=== PATIENT | female | born 1950 | race Caucasian/White ===

== ENCOUNTER → 2016-10-14 | Outpatient (CLI) | payer MEDICARE ==
--- NOTE | 2016-10-17 12:17 | MM ---
Reason for exam: screening (asymptomatic). Last mammogram was performed 1 year ago. History: Patient is postmenopausal. Benign left mammotome panel of the left breast, August 02, 2010. Cancelled Right US Needle Biopsy of the right breast, July 23, 2009. Benign excisional biopsy of the right breast, October 1995. Cyst aspiration of the right breast, 1989. Excisional biopsy of the right breast, 1989. Took hormonal contraceptives for 5 years. Physical Findings: A clinical breast exam by your physician is recommended on an annual basis and results should be correlated with mammographic findings. MG Screening Mammo w CAD Bilateral CC and MLO view(s) were taken. Prior study comparison: October 14, 2015, bilateral MG screening mammo w CAD. October 17, 2014, bilateral MG diagnostic mammo w CAD [facility]. The breast tissue is heterogeneously dense. This may lower the sensitivity of mammography. No significant changes when compared with prior studies. ASSESSMENT: Benign, BI-RAD 2 RECOMMENDATION: Routine screening mammogram of both breasts in 1 year.
== END | disposition home or self-care (01) ==
LOC: RADMAMWWP 14:22
PROVIDERS: ATTEND Family Medicine
DX: Z12.31 Encounter for screening mammogram for malignant neoplasm of breast (principal)

== ENCOUNTER → 2017-10-18 | Outpatient (CLI) | payer MEDICARE ==
--- NOTE | 2017-10-18 18:01 | MR ---
EXAMINATION TYPE: MR brain wo/w con DATE OF EXAM: 10/18/2017 COMPARISON: CT brain 09/25/2017 HISTORY: stroke CONTRAST: Performed utilizing 6 mL intravenous Gadavist gadolinium contrast. TECHNIQUE: Multiplanar, multiecho imaging on a 3.0 Munira magnet is performed through the brain. Stud y is performed within 24 hours of arrival to the hospital. The craniovertebral junction is normal. The pituitary is normal. Diffusion-weighted imaging is performed. No abnormal hyperintensity is present to suggest an acute i ntracranial infarct or acute ischemic change. Some mild periventricular white matter change may be present, likely on some chronic white matter isc hemic basis. 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 This correlates with t he abnormality identified on the CT dated 09/25/2017 from [facility] labeled with the p azul's name. Ventricles and sulci are appropriate for the patient age. No abnormal enhancement is evident. IMPRESSIONS: 1. No suspicious changes for acute or old infarcts. 2. Some mild chronic white matter ischemic change may be present in the periventricular white matter. 3. 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
== END | disposition home or self-care (01) ==
LOC: RADMRIMAIN 13:01
PROVIDERS: ATTEND Family Medicine
DX: R93.0 Abnormal findings on diagnostic imaging of skull and head, not elsewhere classified (principal)
CPT/HCPCS: 70553; A9581

== ENCOUNTER → 2017-11-21 | Outpatient (CLI) | payer MEDICARE ==
--- NOTE | 2017-11-21 08:51 | MM ---
Reason for exam: clinical finding. Last mammogram was performed 1 year and 1 month ago. History: Patient is postmenopausal. Benign left mammotome panel of the left breast, August 02, 2010. Cancelled Right US Needle Biopsy of the right breast, July 23, 2009. Benign excisional biopsy of the right breast, October 1995. Cyst aspiration of the right breast, 1989. Excisional biopsy of the right breast, 1989. Took hormonal contraceptives for 5 years. Physical Findings: Nurse Summary: 1cm nodule in the right breast at 10 o'clock (nurse dw). MG 3D Diag Mammo W/Cad KESHAV Bilateral CC and MLO view(s) were taken. Prior study comparison: October 14, 2016, bilateral MG screening mammo w CAD. October 14, 2015, bilateral MG screening mammo w CAD. The breast tissue is heterogeneously dense. This may lower the sensitivity of mammography. Finding: There are typically benign vascular calcifications in the left breast. Previous mammotome biopsy in the left breast. There is a chronic nodularity in the right breast at level of palpable abnormalities x 2. These results were verbally communicated with the patient and result sheet given to the patient on 11/21/17. ASSESSMENT: Benign, BI-RAD 2 RECOMMENDATION: Routine screening mammogram of both breasts in 1 year. Manage on a clinical basis with regard to left pain.
--- NOTE | 2017-11-21 10:34 | BD ---
EXAMINATION TYPE: MG DEXA axial skeleton. DATE OF EXAM: 11/21/2017 COMPARISON: 2006 DEXA bone scan report. CLINICAL HISTORY: post menopausal Height: 5'4 Weight: 137 FRAX RISK QUESTIONS: Alcohol (3 or more units per day): no Family History (Parent hip fracture): no Glucocorticoids (More than 3mos): no (Ex: prednisone, prednisolone, methylprednisolone, dexamethasone, and hydrocortisone). History of Fracture in Adulthood: no Secondary Osteoporosis: 1. Type 1 Diabetes: no 2. Hyperthyroidism: no 3. Menopause before 45: no 4. Malnutrition: no 5. Chronic liver disease: no Rheumatoid Arthritis: no Current Tobacco Use: no RISK FACTORS HISTORY OF: Diet low in dairy products/other sources of calcium: y Postmenopausal woman: y MEDICATIONS: Additional Medications: cholesterol, bladder control, acid reflux, blood thinner Additional History: EXAM MEASUREMENTS: Bone mineral densitometry was performed using the Flaconi System. Bone mineral density as measured about the Lumbar spine is: ----- L1-L4(G/cm2): 0.704 T Score Values are as follows: ----- L2: -4.7 ----- L3: -3.8 ----- L4: -3.7 ----- L1-L4: -4.0 Bone mineral density has: Decreased -28.4% since study of: 05/19/2006 Bone mineral density about the R hip (g/cm2): 0.755 Bone mineral density about the L hip (g/cm2): 0.769 T Score values are as follows: -----R Neck: -2.0 -----L Neck: -1.9 -----R Total: -1.5 -----L Total: -1.5 Bone mineral density has: Decreased -16.3% since study of: 05/19/2006 IMPRESSION: Osteoporosis (T Score less than -2.5) is now present in low back. Bone density is decreased or dimini shed from prior. There is now increased fracture risk and therapy is usually indicated based on age. Re-Screen 1-2 years. NOTE: T-SCORE=SD OF THE YOUNG ADULT MEAN.
== END | disposition home or self-care (01) ==
LOC: RADBDWWP 07:06
PROVIDERS: ATTEND Family Medicine
DX: M81.0 Age-related osteoporosis without current pathological fracture (principal); Z78.0 Asymptomatic menopausal state; N64.4 Mastodynia
CPT/HCPCS: 77080; 77066; G0279

== ENCOUNTER → 2018-01-08 | Outpatient (CLI) | payer MEDICARE ==
--- NOTE | 2018-01-08 15:00 | US ---
EXAMINATION TYPE: US venous doppler duplex LE DATE OF EXAM: 01/08/2018 2:11 PM COMPARISON: NONE CLINICAL HISTORY: M79.661, M79.662 PAIN IN LE BILATERAL. C/o bilateral lower leg aching; varicose vei ns SIDE PERFORMED: Bilateral TECHNIQUE: The lower extremity deep venous system is examined utilizing real time linear array sonog chela with graded compression, doppler sonography and color-flow sonography. VESSELS IMAGED: Common Femoral Vein Deep Femoral Vein Greater Saphenous Vein * Femoral Vein Popliteal Vein Small Saphenous Vein * Proximal Calf Veins (* superficial vessels) Grayscale, color doppler, spectral doppler imaging performed of the deep veins of the lower extremiti es. There is normal flow, compressibility, vascular waveforms. Right Leg: Negative for DVT Left Leg: Negative for DVT IMPRESSION: No evidence for DVT at this time.
== END | disposition home or self-care (01) ==
LOC: RADUSWWP 13:24
PROVIDERS: ATTEND Family Medicine
DX: M79.662 Pain in left lower leg (principal); M79.661 Pain in right lower leg; Z88.1 Allergy status to other antibiotic agents; Z88.0 Allergy status to penicillin
CPT/HCPCS: 93970